=== PATIENT | female | born 1990 | race Asian ===

== ENCOUNTER 2024-12-18 19:24 | Inpatient (IN) ==
[2024-12-18] MEDS ORDERED: LIDOCAINE 1% LOCAL 20 ML VIAL INFIL PRN (19:55)
[2024-12-18 20:25] LABS: Hematocrit (blood only) 33.9 % (37.0-47.0); Hemoglobin 11.8 g/dl (12.0-16.0); Mean Corpuscular Hemoglobin 27.6 pg (25.0-34.0); Mean Corpuscular Volume 79.4 fL (80.0-100.0); Platelet Count 160 K/uL (130-400); RDW Standard Deviation 46.4 fL (36.4-46.3); Red Blood Count 4.27 M/uL (4.20-5.40); White Blood Count 8.55 K/ul (4.8-10.8)
[2024-12-18] MEDS: LACTATED RINGER'S 1,000 ML IV PRN (22:30)
[2024-12-18] MEDS ORDERED: BUPIVACAINE 0.25% PF 30 ML VIAL EPI PRN (22:52)
[2024-12-18] MEDS ORDERED: NALOXONE HCL 0.4 MG/1 ML VIAL/CARP IV PRN (22:52)
[2024-12-18] MEDS ORDERED: NALOXONE HCL 1 MG in SODIUM CHLORIDE 0.9% 1,000 ML IV PRN (22:52)
[2024-12-18] MEDS ORDERED: LIDOCAINE 2%/EPINEPHRINE 1:200,000 20 ML PF EPI STA (22:52)
[2024-12-18] MEDS ORDERED: NALBUPHINE HCL INJ 10 MG/ML AMP IV PRN (22:52)
[2024-12-18] MEDS ORDERED: diphenhydrAMINE 50 MG/ML VIAL IV PRN (22:52)
[2024-12-18] MEDS ORDERED: ROPIVACAINE 0.5% PF 5 MG/ML 20 ML VIAL EPI PRN (22:52)
[2024-12-18] MEDS ORDERED: BUPIVACAINE 0.25% PF 30 ML VIAL EPI STA (22:52)
[2024-12-18] MEDS ORDERED: SODIUM CHLORIDE 0.9% PF INJ 10 ML VIAL EPI PRN (22:52)
[2024-12-18] MEDS ORDERED: LIDOCAINE 2% MPF LOCAL 5 ML VIAL EPI PRN (22:52)
[2024-12-18] MEDS ORDERED: SODIUM CHLORIDE 0.9% PF INJ 10 ML VIAL EPI STA (22:52)
--- NOTE | 2024-12-18 22:53 | Anesthesiology Consultation ---
Date of Service December 18, 2024 Assessment & Plan Chart Review Chart Review: Acceptable Risk for Labor Epidural Consults Requested medical & cardiac Pulmonary History Height/Weight Height: 54 ft Weight: 80.739 kg Allergies Allergy/AdvReac Type Severity Reaction Status Date / Time No Known Allergies Allergy Verified 12/17/24 13:37 Medications Home Medications Medication Instructions Recorded Confirmed Last Taken 21-iron fu-folic acid 1 tab PO DAILY 09/11/24 12/18/24 12/17/24 [ Complete] acetone (urine) test (Ketone Urine #50 ea 10/11/24 12/17/24 Unknown Test strips) blood sugar diagnostic (OneTouch #150 ea 10/11/24 12/17/24 Unknown Verio test strips) blood-glucose meter (OneTouch #1 ea 10/11/24 12/17/24 Unknown Verio Flex Meter) lancets 33 gauge (OneTouch Delica #150 ea 10/11/24 12/17/24 Unknown Plus Lancet) breast pump #1 ea 10/30/24 12/17/24 Unknown pen needle, diabetic 32 gauge x #50 ea 11/18/24 12/17/24 Unknown 5/32" Past Medical History Medical History Kidney stone PPD positive, treated History of chicken pox Asthma Past Family History Family History (Updated 09/11/24 @ 10:02 by Gracie Mendez) Mother Diabetes Father Diabetes Brother Diabetes Sister Diabetes Gestational diabetes Asthma Denies family history of Ovarian cancer Breast cancer Colorectal cancer Past Surgical History Surgical History (Updated 09/11/24 @ 10:21 by Gracie Mendez) No history of previous surgery Social History Smoking Status: Never smoker Do You Dip or Chew Tobacco: No Hx Alcohol Use: No Hx Substance Use: No Physical Exam Vital Signs Last Vital Signs Temp 37.2 C 12/18/24 19:39 Pulse 96 H 12/18/24 22:51 Resp 18 12/18/24 19:39 BP 133/88 12/18/24 19:36 Pulse Ox 99 12/18/24 22:51 Testing Laboratory Results 12/18/24 20:08
[2024-12-18] MEDS: LIDOCAINE 2%/EPINEPHRINE 1:200,000 20 ML PF ONE (23:09)
[2024-12-18] MEDS: fentANYL 2 MCG/ML BUPIVacaine 0.125%-NSS 100ML BAG ONE (23:22)
[2024-12-19] MEDS ORDERED: NURSING L&D Epidural Breakthrough Pain Update ONE (02:58)
[2024-12-19] MEDS: fentANYL 2 MCG/ML BUPIVacaine 0.125%-NSS 100ML BAG EPI PRN (06:32)
--- NOTE | 2024-12-19 07:07 | History & Physical Report ---
Date of Service December 19, 2024 Assessment & Plan (1) Gestational diabetes: Plan: Patient admitted over the evening for active labor 4 cm GBS negative gestational diabetes diet-controlled requested epidural artificial rupture membranes this morning for clear fluid shortly after artificial rupture of membranes she had a 3-minute long deceleration this resolves spontaneously scalp with was placed for better placement heart rate now category 1 contractions are 3 minutes apart anticipate vaginal delivery Admission and Anticipated Discharge Date Admission Date: December 18, 2024 History of Present Illness Primary Care Provider: NO PCP DD Calculator Estimated Delivery Date Method Current WG Current Estimate 12/21/24 LMP (Certain) 39w 3d Other Estimates 12/20/24 Ultrasound #1 39w 4d LMP: 03/16/25 : 1 Full term: 0 Premature: 0 Total Number of Induced Abortions: 0 Total Number of Spontaneous Abortions: 0 Ectopics: 0 Multiple births: 0 Number of Living Children: 0 and Delivery Plans Transfer into care @ 25+ weeks Gestational Diabetes Growth u/s's q 4 weeks Allergies Allergy/AdvReac Type Severity Reaction Status Date / Time No Known Allergies Allergy Verified 12/17/24 13:37 Home Medications Medication Instructions Recorded Confirmed Type 21-iron fu-folic acid 1 tab PO DAILY 09/11/24 12/18/24 History [ Complete] acetone (urine) test (Ketone Urine #50 ea 10/11/24 12/17/24 Rx Test strips) blood sugar diagnostic (OneTouch #150 ea 10/11/24 12/17/24 Rx Verio test strips) blood-glucose meter (OneTouch #1 ea 10/11/24 12/17/24 Rx Verio Flex Meter) lancets 33 gauge (OneTouch Delica #150 ea 10/11/24 12/17/24 Rx Plus Lancet) breast pump #1 ea 10/30/24 12/17/24 Rx pen needle, diabetic 32 gauge x #50 ea 11/18/24 12/17/24 Rx 5/32" Patient History Medical History Kidney stone PPD positive, treated History of chicken pox Asthma Surgical History (Updated 09/11/24 @ 10:21 by Gracie Mendez) No history of previous surgery Family History (Updated 12/19/24 @ 07:06 by Christina Edwards MD, FACOG) Mother Diabetes Father Diabetes Brother Diabetes Sister Diabetes Gestational diabetes Asthma Other Insulin controlled gestational diabetes mellitus (GDM) during Denies family history of Ovarian cancer Breast cancer Colorectal cancer Social History (Updated 09/11/24 @ 10:04 by Gracie Mendez) Smoking Status: Never smoker Do You Dip or Chew Tobacco: No; Hx Alcohol Use: No Hx Substance Use: No Preferred Language: Israeli Communication Ability: Effective Pony Edger Required: No marital status: marital status details: Allan Meyers ([phone] Current Living Situation: Spouse Current Living Situation Comment: lives with spouse-no pets-patient commutes from [place] 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[place], [place] Other Information That Helps Us Care for You: No Feels Safe at Home: Yes Safety Concerns: Feels Safe At This Time Assistive Devices: None Physical Exam Constitutional: WD/WN, vitals as above well developed and well nourished Respiratory: normal respiratory effort, lungs clear to auscultation normal respiratory effort Cardiovascular: RRR, no murmur, no edema Gastrointestinal (Abdomen): normal bowel sounds, soft, nontender, no hepatosplenomegaly Results & Data Vital Signs (Past 12 Hours) Vital Signs Temp Pulse Resp BP Pulse Ox 12/19/24 06:58 92 12/19/24 06:58 111 H 12/19/24 06:58 90 124/74 12/19/24 06:57 90 96 12/19/24 06:52 94 H 98 12/19/24 06:48 18 12/19/24 06:48 99.1 F 18 12/19/24 06:47 90 100 12/19/24 06:43 81 132/74 12/19/24 06:42 89 99 12/19/24 06:37 85 98 12/19/24 06:32 102 H 98 12/19/24 06:29 82 130/86 12/19/24 06:27 85 99 12/19/24 06:22 103 H 96 12/19/24 06:17 92 H 98 12/19/24 06:14 97 H 138/85 12/19/24 06:12 88 99 12/19/24 06:11 91 H 92 12/19/24 06:07 85 99 12/19/24 06:02 93 H 99 12/19/24 05:58 85 129/79 12/19/24 05:57 100 H 95 12/19/24 05:53 83 94 12/19/24 05:52 81 96 12/19/24 05:47 99 H 93 12/19/24 05:44 78 133/80 12/19/24 05:43 99 H 94 12/19/24 05:42 91 H 95 12/19/24 05:37 96 H 93 12/19/24 05:32 84 99 12/19/24 05:27 91 H 97 12/19/24 05:22 87 98 12/19/24 05:20 92 H 94 12/19/24 05:17 79 99 12/19/24 05:14 90 94 12/19/24 05:13 77 128/78 12/19/24 05:12 77 97 12/19/24 05:07 76 94 12/19/24 05:02 73 98 12/19/24 05:00 75 94 12/19/24 04:59 89 131/74 12/19/24 04:57 90 97 12/19/24 04:52 99 12/19/24 04:52 95 H 12/19/24 04:52 104 H 93 12/19/24 04:47 99 H 98 12/19/24 04:45 90 148/80 H 12/19/24 04:44 98 H 94 12/19/24 04:42 86 99 12/19/24 04:37 97 H 98 12/19/24 04:32 99.0 F 92 H 18 95 12/19/24 04:30 88 93 12/19/24 04:29 84 129/83 12/19/24 04:27 100 H 97 12/19/24 04:23 91 H 94 12/19/24 04:22 86 96 12/19/24 04:18 89 94 12/19/24 04:17 85 95 12/19/24 04:14 83 118/73 12/19/24 04:12 88 91 12/19/24 04:11 101 H 94 12/19/24 04:07 100 H 91 12/19/24 04:05 80 93 12/19/24 04:02 92 H 95 12/19/24 03:59 83 121/79 93 12/19/24 03:57 91 H 96 12/19/24 03:52 85 95 12/19/24 03:50 106 H 94 12/19/24 03:47 91 H 94 12/19/24 03:44 94 12/19/24 03:44 84 12/19/24 03:44 77 113/73 12/19/24 03:42 90 93 12/19/24 03:39 90 94 12/19/24 03:37 84 95 12/19/24 03:33 90 94 12/19/24 03:32 103 H 98 12/19/24 03:28 84 117/77 12/19/24 03:27 97 H 94 12/19/24 03:22 93 H 94 12/19/24 03:21 92 H 94 12/19/24 03:17 91 H 92 12/19/24 03:16 86 94 12/19/24 03:13 105 H 121/74 12/19/24 03:12 88 92 12/19/24 03:10 82 94 12/19/24 03:07 88 94 12/19/24 03:05 100 H 93 12/19/24 03:02 89 95 12/19/24 03:00 91 H 94 12/19/24 02:57 96 H 93 12/19/24 02:54 99 H 92 12/19/24 02:52 92 H 96 12/19/24 02:48 100 H 93 12/19/24 02:47 105 H 95 12/19/24 02:43 95 H 132/82 12/19/24 02:42 93 H 95 12/19/24 02:39 100 H 93 12/19/24 02:37 96 H 97 12/19/24 02:32 106 H 20 97 12/19/24 02:31 115 H 93 12/19/24 02:28 112 H 132/82 12/19/24 02:27 105 H 100 12/19/24 02:25 100 H 92 12/19/24 02:22 116 H 96 12/19/24 02:18 95 H 91 12/19/24 02:17 92 H 99 12/19/24 02:14 83 138/87 12/19/24 02:12 86 99 12/19/24 02:07 90 99 12/19/24 02:02 87 96 12/19/24 01:59 108 H 123/79 12/19/24 01:57 81 18 100 12/19/24 01:53 84 94 12/19/24 01:52 81 95 12/19/24 01:47 88 94 12/19/24 01:45 78 94 12/19/24 01:43 83 133/84 12/19/24 01:42 79 96 12/19/24 01:38 82 94 12/19/24 01:37 85 96 12/19/24 01:32 93 H 97 12/19/24 01:28 96 H 141/87 H 12/19/24 01:27 87 98 12/19/24 01:22 86 97 12/19/24 01:20 89 94 12/19/24 01:17 91 H 97 12/19/24 01:13 93 H 137/80 12/19/24 01:12 92 H 95 12/19/24 01:07 91 H 96 12/19/24 01:02 87 96 12/19/24 01:01 18 12/19/24 01:01 18 12/19/24 01:00 18 12/19/24 00:58 86 123/80 12/19/24 00:57 88 97 12/19/24 00:52 99 H 98 12/19/24 00:47 88 96 12/19/24 00:43 85 118/73 12/19/24 00:42 86 96 12/19/24 00:37 93 H 96 12/19/24 00:32 90 97 12/19/24 00:30 18 12/19/24 00:28 88 120/77 12/19/24 00:27 94 H 98 12/19/24 00:22 88 98 12/19/24 00:17 92 H 98 12/19/24 00:14 97 H 129/83 12/19/24 00:12 93 H 100 12/19/24 00:07 93 H 99 12/19/24 00:02 96 H 98 12/19/24 00:00 18 12/18/24 23:59 90 129/81 12/18/24 23:57 96 H 97 12/18/24 23:52 85 97 12/18/24 23:47 92 H 97 12/18/24 23:42 99 H 98 12/18/24 23:41 97 H 128/77 12/18/24 23:40 18 12/18/24 23:40 18 12/18/24 23:39 100 H 124/78 12/18/24 23:37 102 H 120/77 97 12/18/24 23:35 113 H 18 116/74 12/18/24 23:33 106 H 124/77 12/18/24 23:32 111 H 98 12/18/24 23:31 111 H 127/77 12/18/24 23:30 18 12/18/24 23:30 99.0 F 18 12/18/24 23:29 109 H 127/80 12/18/24 23:27 116 H 131/78 99 12/18/24 23:25 125 H 18 133/84 12/18/24 23:23 126 H 137/81 12/18/24 23:22 129 H 99 12/18/24 23:21 118 H 148/78 H 12/18/24 23:19 134 H 134/77 12/18/24 23:18 146 H 93 12/18/24 23:17 152 H 95 12/18/24 23:12 121 H 83 L 12/18/24 23:06 104 H 82 L 12/18/24 23:04 96 H 90 12/18/24 23:01 109 H 92 12/18/24 22:58 95 H 90 12/18/24 22:56 99 H 99 12/18/24 22:51 96 H 99 12/18/24 22:46 88 99 12/18/24 22:41 88 98 12/18/24 22:36 88 100 12/18/24 22:31 90 100 12/18/24 22:26 84 99 12/18/24 19:39 99.0 F 18 12/18/24 19:36 93 H 133/88 Coding Level of Care Code None Diagnoses Gestational diabetes O24.419
[2024-12-19] MEDS: OXYTOCIN 30 UNITS/NSS 30 UNITS/500 ML BAG IV PRN ×2 (08:33→09:24)
--- NOTE | 2024-12-19 08:44 | Delivery Summary ---
Vaginal Delivery Summary Date of Service December 19, 2024 Vaginal Delivery Summary DIAGNOSES: 1. Stephenson intrauterine at 39w5d gestation. 2. Spontaneous onset of labor. 3. Group B Streptococcus Neg. 4. Gestational diabetes, diet controlled PROCEDURE: Spontaneous vaginal delivery and repair of second degree laceration. SURGEON: Lolis Travis MD. UNIT LEADER: None. ESTIMATED BLOOD LOSS: 123 mL. COMPLICATIONS: None. PLACENTA: Spontaneous and intact with a 3-vessel cord. DISPOSITION: Stable to labor and delivery. DESCRIPTION: The patient pushed well and brought the head to in OA position. The 's head was allowed to deliver with contraction force and no further active pushing, with the perineum protected during this time. There was no nuchal cord, but an occult-prolapsed loop of cord delivered alongside the head, likely explaining the variable decels seen at times during late labor and second stage. The right shoulder was anterior. The shoulders and body delivered without any difficulty, and the infant was placed on the maternal abdomen. It was vigorous and moving all extremities, and making respiratory efforts. The cord was doubly clamped by the MD and then cut by the FOB. The placenta delivered spontaneously and was noted to be intact and with a 3VC. The cervix, vagina and perineum were examined and were found to have a second degree laceration which was repaired in the usual manner with vicryl suture, including a crown stitch to rebuild the perineal body. The fundus was firm and lochia minimal immediately after delivery. [facility] Vaginal Delivery Charge Vaginal Delivery Codes: 08013 global code for the antepartum, delivery, and post-
[2024-12-19] MEDS ORDERED: HYDROCORTISONE ACETATE 25 MG SUPP PR PRN (09:11)
--- NOTE | 2024-12-19 09:51 | Anesthesia Procedure Note ---
Date of Service December 19, 2024 Anesthesia Post Epidural Note Vital Signs Vital Signs: Temp Pulse Resp BP Pulse Ox 98.2 F 118 H 20 113/70 99 12/19/24 07:21 12/19/24 09:47 12/19/24 09:32 12/19/24 09:47 12/19/24 09:02 Pain Intensity Bilateral Abdomen: Pain Intensity: 4 Notes Mental Status: alert / awake / arousable and participated in evaluation Nausea / Vomiting: adequately controlled Pain: adequately controlled Airway Patency, RR, SpO2: stable & adequate BP & HR: stable & adequate Hydration State: stable & adequate Neuraxial Anesthesia: was administered and sensory block is resolving Anesthetic Complications: no major complications apparent and Pt Satisfied with anesthetic care Epidural: Removed without complications and With tip intact
[2024-12-19] MEDS: IBUPROFEN 600 MG TAB PO PRN (16:20)
[2024-12-19] MEDS: DOCUSATE SODIUM 100 MG CAP PO SCH (20:18)
[2024-12-19] MEDS: BENZOCAINE 20% SPRY 85 APPLN/85 GM CAN EXT PRN (20:18)
[2024-12-20 07:03] LABS: Hematocrit (blood only) 26.1 % (37.0-47.0); Hemoglobin 8.9 g/dl (12.0-16.0); Mean Corpuscular Hemoglobin 27.3 pg (25.0-34.0); Mean Corpuscular Volume 80.1 fL (80.0-100.0); Platelet Count 141 K/uL (130-400); RDW Standard Deviation 48.3 fL (36.4-46.3); Red Blood Count 3.26 M/uL (4.20-5.40); White Blood Count 11.74 K/ul (4.8-10.8)
--- NOTE | 2024-12-20 07:05 | Obstetrical Progress Note ---
Date of Service December 20, 2024 Assessment & Plan (1) state: PPD#1 , routine care, d/c tomorrow Subjective Ambulation: ambulating normally Voiding: no voiding problems Passing Gas:: No Diet Tolerance:: regular diet Lochia:: Small Feeding Type:: bottle feeding Current Pain Level(1-10): 0 Physical Exam Constitutional WD/WN, vitals as above Eyes PERRL, conjunctivae normal, anicteric sclerae ENMT external ear and nose normal, oropharynx normal Neck trachea midline, no thyromegaly Respiratory normal respiratory effort and able to speak in complete sentences; no respiratory distress, no labored breathing and does not use accessory muscles Cardiovascular Rate/Rhythm: regular rate and regular rhythm Extremities: no calf tenderness and no pedal edema Chest (Breasts) Breast: normal inspection of breasts Gastrointestinal (Abdomen) Inspection/Auscultation: abdomen normal to inspection; abdomen not distended Musculoskeletal no cyanosis or clubbing, extremities motor strength 5/5 Skin no rashes, warm and dry Neurologic patellar DTR's 2+ bilat, sensation intact Psychiatric A+Ox3, euthymic affect Genitourinary Speculum/Bimanual Exam: uterus nontender OB Exam Abdomen: + fundal height (at umbilicus) Fundus: + firm Results & Data Vital Signs (Past 12 Hours) Vital Signs Temp Pulse Resp BP Pulse Ox O2 Del Method 12/20/24 04:00 98.4 F 81 16 108/72 99 Room Air 12/20/24 00:00 98.6 F 64 16 108/78 99 Room Air 12/19/24 19:30 98.6 F 101 H 16 116/77 99 Room Air
[2024-12-20] MEDS: PRENATAL VITAMIN 1 TAB PO SCH (08:37)
[2024-12-20] MEDS: ACETAMINOPHEN 325 MG TAB PO PRN (16:20)
[2024-12-20] MEDS: DIPHTHER/TETAN/PERTUS Vaccine (Tdap, Adol/Adult) 0.5mL IM ONE (18:04)
[2024-12-20] MEDS: BUPIVACAINE 0.25% PF 30 ML VIAL ONE (18:04)
[2024-12-20] MEDS: SODIUM CHLORIDE 0.9% PF INJ 10 ML VIAL ONE (18:05)
[2024-12-21 01:00] VITALS: O2SAT 98
[2024-12-21 07:26] LABS: Hematocrit (blood only) 27.9 % (37.0-47.0); Hemoglobin 9.5 g/dl (12.0-16.0)
--- NOTE | 2024-12-21 07:27 | Obstetrical Progress Note ---
Date of Service December 21, 2024 Assessment & Plan (1) state: Plan doing well. plan d/c. Instructions given. Day #:: 2 Subjective Ambulation: ambulating normally Voiding: no voiding problems Passing Gas:: Yes Diet Tolerance:: regular diet Lochia:: Small Feeding Type:: breast feeding Notes she has not had milk let down yet. Notes she feels pressure like she has to have BM but has not been able to Physical Exam Constitutional WD/WN, vitals as above Respiratory normal respiratory effort, lungs clear to auscultation Cardiovascular RRR, no murmur, no edema Extremities: no calf tenderness and no edema Gastrointestinal (Abdomen) soft, nt, nd, ff/nt at u Psychiatric A+Ox3, euthymic affect Results & Data Vital Signs (Past 12 Hours) Vital Signs Temp Pulse Resp BP Pulse Ox O2 Del Method 12/20/24 23:45 37 C 88 18 109/70 98 Room Air 12/20/24 20:05 Room Air 12/20/24 20:05 37 C 84 18 125/75 99 Room Air
[2024-12-21 10:43] VITALS: BP 105/74; PULSE 86; RESP 16; TEMP 99
== END 2024-12-21 15:09 | disposition home or self-care (01) | DRG 807 ==
LOC: OPB 19:24 → 4S1 19:30 → 4E2 12-19 11:08